=== PATIENT | male | born 1940 | race Caucasian/White ===

== ENCOUNTER 2017-10-09 15:44 | Outpatient (CLI) | payer OTHER | END 2017-10-09 17:00 | disposition home or self-care (01) | LOC: HPC 15:44 | DX: C22.0 Liver cell carcinoma (principal) | CPT/HCPCS: Z7500 ==

== ENCOUNTER → 2017-10-11 | Outpatient (CLI) | payer OTHER ==
[2017-10-11] MEDS: SOD CHLORIDE 0.9% 100 ML (12:15)
[2017-10-11] MEDS: IODIXANOL LOCM 100 ML BTL (12:16)
== END | disposition home or self-care (01) ==
LOC: C/S 10:46
DX: C22.0 Liver cell carcinoma (principal)
CPT/HCPCS: 74178

== ENCOUNTER 2017-10-21 11:00 | Outpatient (CLI) | payer OTHER | END 2017-10-21 16:43 | disposition home or self-care (01) | LOC: HPC 11:00 | DX: C22.0 Liver cell carcinoma (principal) | CPT/HCPCS: Z7500 ==

== ENCOUNTER 2017-11-27 09:52 | Outpatient (CLI) | payer OTHER | END 2017-11-27 15:42 | disposition home or self-care (01) | LOC: HPC 09:52 | DX: C22.0 Liver cell carcinoma (principal) | CPT/HCPCS: Z7500 ==

== ENCOUNTER 2018-01-31 18:28 | Observation (INO) | payer OTHER ==
[2018-01-31] MEDS: DEXTROSE 5%-0.45% NACL 1,000 ML IV (00:25)
[2018-01-31] MEDS ORDERED: morphine 4 MG/ML VIAL IV (19:24)
[2018-01-31] MEDS ORDERED: ONDANSETRON 4 MG INJ IV ×3 (19:24→23:30)
[2018-01-31 20:15] LABS: ADD MAN DIFF? NO
[2018-01-31 20:16] LABS: BASOPHILS % 0.5 % (0.0-2.0); EOSINOPHILS # 0.2 10^3/ul (0.0-0.5); EOSINOPHILS % 2.3 % (0.0-7.0); HEMATOCRIT 35.2 % (42.0-52.0); HEMOGLOBIN 12.6 g/dl (14.0-18.0); LYMPHOCYTES # 1.3 10^3/ul (0.8-2.9); LYMPHOCYTES % 17.6 % (15.0-51.0); MEAN CORPUSCULAR HEMOGLOBIN 26.1 pg (29.0-33.0); MEAN CORPUSCULAR HGB CONC 35.8 g/dl (32.0-37.0); MEAN CORPUSCULAR VOLUME 72.9 fl (82.0-101.0); MEAN PLATELET VOLUME 10.2 fl (7.4-10.4); MONOCYTE # 0.8 10^3/ul (0.3-0.9); MONOCYTES % 10.3 % (0.0-11.0); NEUTROPHIL # 5.1 10^3/ul (1.6-7.5); NEUTROPHILS % 68.6 % (39.0-77.0); PLATELET COUNT 317 10^3/UL (140-415); RED BLOOD COUNT 4.83 10^6/ul (4.70-6.10); RED CELL DISTRIBUTION WIDTH 14.7 % (11.5-14.5)
[2018-01-31 20:16] LABS: WHITE BLOOD COUNT 7.5 10^3/ul (4.8-10.8)
[2018-01-31 20:31] LABS: INR 0.96; PROTIME 12.9 Sec (11.9-14.9)
[2018-01-31 20:32] LABS: PARTIAL THROMBOPLASTIN TIME 34.8 Sec (25.0-35.0)
[2018-01-31 20:49] LABS: ALANINE AMINOTRANSFERASE 85 IU/L (13-69); ALBUMIN 3.3 g/dl (3.3-4.9); ALBUMIN/GLOBULIN RATIO 0.68; ALKALINE PHOSPHATASE 439 IU/L (42-121); ANION GAP 15 (8-16); ASPARTATE AMINO TRANSFERASE 98 IU/L (15-46); BILIRUBIN,INDIRECT 0.6 mg/dl (0-1.1); BILIRUBIN,TOTAL 0.6 mg/dl (0.2-1.3); BLOOD UREA NITROGEN 12 mg/dl (7-20); CALCIUM 9.8 mg/dl (8.4-10.2); CARBON DIOXIDE 27 mmol/L (21-31); CHLORIDE 98 mmol/L (97-110); CREATININE 0.93 mg/dl (0.61-1.24); GLUCOSE 176 mg/dl (70-220); LIPASE 124 U/L (23-300); POTASSIUM 3.9 mmol/L (3.5-5.1); SODIUM 136 mmol/L (135-144); TOTAL PROTEIN 8.1 g/dl (6.1-8.1)
[2018-01-31 21:07] LABS: TROPONIN-I < 0.012 ng/ml (0.00-0.12)
[2018-01-31] MEDS ORDERED: ACETAMINOPHEN 325 MG TAB PO (22:00)
[2018-01-31] MEDS ORDERED: NACL 0.9% 3 ML SYG IV (23:30)
[2018-01-31] MEDS ORDERED: ALBUTEROL/IPRATROPIUM (NEB) 3 ML AMP HHN (23:30)
[2018-01-31] MEDS ORDERED: morphine 2 MG INJ IV (23:30)
[2018-02-01 05:50] LABS: ADD MAN DIFF? NO
[2018-02-01 05:55] LABS: BASOPHILS % 0.4 % (0.0-2.0); EOSINOPHILS # 0.2 10^3/ul (0.0-0.5); EOSINOPHILS % 2.4 % (0.0-7.0); HEMATOCRIT 31.7 % (42.0-52.0); HEMOGLOBIN 11.2 g/dl (14.0-18.0); LYMPHOCYTES # 1.4 10^3/ul (0.8-2.9); LYMPHOCYTES % 18.9 % (15.0-51.0); MEAN CORPUSCULAR HEMOGLOBIN 25.7 pg (29.0-33.0); MEAN CORPUSCULAR HGB CONC 35.3 g/dl (32.0-37.0); MEAN CORPUSCULAR VOLUME 72.9 fl (82.0-101.0); MONOCYTE # 0.9 10^3/ul (0.3-0.9); MONOCYTES % 11.7 % (0.0-11.0); NEUTROPHILS % 66.2 % (39.0-77.0); PLATELET COUNT 296 10^3/UL (140-415); RED BLOOD COUNT 4.35 10^6/ul (4.70-6.10); RED CELL DISTRIBUTION WIDTH 14.6 % (11.5-14.5)
[2018-02-01 05:55] LABS: WHITE BLOOD COUNT 7.5 10^3/ul (4.8-10.8)
[2018-02-01 06:25] LABS: ALANINE AMINOTRANSFERASE 80 IU/L (13-69); ALBUMIN 2.7 g/dl (3.3-4.9); ALBUMIN/GLOBULIN RATIO 0.64; ALKALINE PHOSPHATASE 382 IU/L (42-121); ANION GAP 11 (8-16); ASPARTATE AMINO TRANSFERASE 85 IU/L (15-46); BILIRUBIN,INDIRECT 0.4 mg/dl (0-1.1); BILIRUBIN,TOTAL 0.4 mg/dl (0.2-1.3); BLOOD UREA NITROGEN 11 mg/dl (7-20); CALCIUM 9.6 mg/dl (8.4-10.2); CARBON DIOXIDE 30 mmol/L (21-31); CHLORIDE 103 mmol/L (97-110); CREATININE 0.81 mg/dl (0.61-1.24); GLUCOSE 101 mg/dl (70-220); MAGNESIUM 2.1 mg/dl (1.7-2.5); POTASSIUM 3.7 mmol/L (3.5-5.1); SODIUM 140 mmol/L (135-144); TOTAL PROTEIN 6.9 g/dl (6.1-8.1)
[2018-02-01] MEDS: LIDOCAINE 1% (MDV) 10 ML INJ (15:28)
[2018-02-01 16:00] LABS: FLD MN% 72.8 %; FLD PMN% 27.2 %; FLD RBC 0 /uL; FLD WBC 357 /cmm
[2018-02-01 16:18] LABS: FLD CLARITY CLEAR; FLD COLOR YELLOW
[2018-02-01 16:18] LABS: FLD TYPE PARACENTHESIS
[2018-02-01 16:24] LABS: FLUID AMYLASE < 30 U/L; FLUID GLUCOSE 93 mg/dl
[2018-02-01 16:25] LABS: FLUID LD 153 U/L; FLUID TOTAL PROTEIN < 2.0 g/dl
[2018-02-01] MEDS: LATANOPROST 0.005% 2.5 ML OPH BOTH EYES (21:12)
[2018-02-01] MEDS: DEXTROSE 5%-0.45% NACL 1,000 ML IV (23:15)
[2018-02-02] MEDS: DEXTROSE 5%-0.45% NACL 1,000 ML IV (04:30)
[2018-02-02] MEDS: DOCUSATE SODIUM 100 MG CAP PO (11:56)
== END 2018-02-02 12:30 | disposition home or self-care (01) ==
LOC: MS1 02-01 21:25 → E/R 18:28 → MS1 21:57
DX: R18.8 Other ascites (principal); C22.0 Liver cell carcinoma; I10 Essential (primary) hypertension; J44.9 Chronic obstructive pulmonary disease, unspecified; J45.909 Unspecified asthma, uncomplicated; N40.0 Benign prostatic hyperplasia without lower urinary tract symptoms; Z88.8 Allergy status to other drugs, medicaments and biological substances; Z87.891 Personal history of nicotine dependence; Z83.3 Family history of diabetes mellitus
CPT/HCPCS: 36415; 74176; 80053; 82150; 82945; 83615; 83690; 83735; 84100; 84157; 84484; 85025; 85610; 85730; 87070; 87102; 87116; 88104; 88305; 89051; 99285-25

== ENCOUNTER 2018-02-28 18:34 | Inpatient (IN) | payer OTHER ==
[2018-02-28 19:36] LABS: ADD MAN DIFF? NO
[2018-02-28 19:43] LABS: ABNORMAL IP MESSAGE 1; BASOPHIL # 0.1 10^3/ul (0.0-0.1); BASOPHILS % 0.4 % (0.0-2.0); EOSINOPHILS % 0.1 % (0.0-7.0); HEMOGLOBIN 15.4 g/dl (14.0-18.0); LYMPHOCYTES # 1.9 10^3/ul (0.8-2.9); LYMPHOCYTES % 14.1 % (15.0-51.0); MEAN CORPUSCULAR HEMOGLOBIN 24.9 pg (29.0-33.0); MEAN CORPUSCULAR HGB CONC 36.7 g/dl (32.0-37.0); MEAN CORPUSCULAR VOLUME 67.9 fl (82.0-101.0); MONOCYTE # 1.5 10^3/ul (0.3-0.9); MONOCYTES % 11.2 % (0.0-11.0); NEUTROPHIL # 9.8 10^3/ul (1.6-7.5); NEUTROPHILS % 71.7 % (39.0-77.0); PLATELET COUNT 352 10^3/UL (140-415); POSITIVE DIFF @See below; RED BLOOD COUNT 6.19 10^6/ul (4.70-6.10); RED CELL DISTRIBUTION WIDTH 19.2 % (11.5-14.5)
[2018-02-28 19:43] LABS: WHITE BLOOD COUNT 13.7 10^3/ul (4.8-10.8)
[2018-02-28] MEDS: SOD CHLORIDE 0.9% 1,000 ML IV (19:48)
[2018-02-28 20:01] LABS: ADD UMIC YES; UR ASCORBIC ACID NEGATIVE (NEGATIVE); UR BILIRUBIN (Dip) NEGATIVE (NEGATIVE); UR BLOOD (Dip) 1+ mg/dL (NEGATIVE); UR CLARITY CLEAR (CLEAR); UR COLOR AMBER (YELLOW); UR GLUCOSE (Dip) NEGATIVE (NEGATIVE); UR KETONES (Dip) NEGATIVE (NEGATIVE); UR LEUKOCYTE ESTERASE (Dip) NEGATIVE Leu/ul (NEGATIVE); UR NITRITE (Dip) NEGATIVE (NEGATIVE); UR RBC 4 /HPF (0-5); UR SPECIFIC GRAVITY (Dip) 1.012 (1.003-1.030); UR TOTAL PROTEIN (Dip) NEGATIVE (NEGATIVE); UR UROBILINOGEN (Dip) 2+ mg/dL (NEGATIVE); UR WBC 7 /HPF (0-5)
[2018-02-28 20:02] LABS: INR 1.14; PROTIME 14.8 Sec (11.9-14.9); PT RATIO 1.2
[2018-02-28 20:03] LABS: PARTIAL THROMBOPLASTIN TIME 37.4 Sec (25.0-35.0)
[2018-02-28 20:05] LABS: ACETAMINOPHEN < 10.0 ug/ml (10.0-30.0); ALANINE AMINOTRANSFERASE 220 IU/L (13-69); ALBUMIN 3.2 g/dl (3.3-4.9); ALBUMIN/GLOBULIN RATIO 0.58; ALKALINE PHOSPHATASE 489 IU/L (42-121); ANION GAP 14 (8-16); ASPARTATE AMINO TRANSFERASE 204 IU/L (15-46); BILIRUBIN,INDIRECT 1.3 mg/dl (0-1.1); BILIRUBIN,TOTAL 3.5 mg/dl (0.2-1.3); BLOOD UREA NITROGEN 19 mg/dl (7-20); CALCIUM 9.1 mg/dl (8.4-10.2); CARBON DIOXIDE 28 mmol/L (21-31); CHLORIDE 99 mmol/L (97-110); CREATINE KINASE 44 IU/L (23-200); CREATININE 0.96 mg/dl (0.61-1.24); GLUCOSE 107 mg/dl (70-220); POTASSIUM 4.1 mmol/L (3.5-5.1); SALICYLATE < 1.0 mg/dl (5.0-30.0); SODIUM 137 mmol/L (135-144); TOTAL PROTEIN 8.7 g/dl (6.1-8.1)
[2018-02-28 20:05] LABS: AMMONIA 59 umol/l (9-30)
[2018-02-28 20:13] LABS: CK INDEX 0.8; CK-MB 0.37 ng/ml (0.0-2.4)
[2018-02-28 20:18] LABS: TROPONIN-I < 0.012 ng/ml (0.000-0.120)
[2018-02-28] MEDS: CEFTRIAXONE 1 GM/50 ML (PMX) 50 ML IVPB (21:25)
[2018-02-28] MEDS: LACTULOSE 30ML CUP PO (21:25)
[2018-02-28] MEDS ORDERED: ACETAMINOPHEN 325 MG TAB PO (23:00)
[2018-02-28] MEDS ORDERED: ONDANSETRON 4 MG INJ IV (23:00)
[2018-03-01] MEDS ORDERED: morphine 2 MG INJ IV (04:30)
[2018-03-01] MEDS ORDERED: ONDANSETRON 4 MG INJ IV (04:30)
[2018-03-01] MEDS ORDERED: LACTULOSE 30ML CUP PO (06:00)
[2018-03-01] MEDS: LACTULOSE 30ML CUP PO ×3 (06:15→18:01)
[2018-03-01 06:54] LABS: ADD MAN DIFF? NO
[2018-03-01 07:03] LABS: WHITE BLOOD COUNT 11.5 10^3/ul (4.8-10.8)
[2018-03-01 07:03] LABS: BASOPHIL # 0.1 10^3/ul (0.0-0.1); BASOPHILS % 0.5 % (0.0-2.0); EOSINOPHILS # 0.1 10^3/ul (0.0-0.5); EOSINOPHILS % 0.4 % (0.0-7.0); HEMATOCRIT 37.9 % (42.0-52.0); HEMOGLOBIN 14.1 g/dl (14.0-18.0); LYMPHOCYTES # 1.7 10^3/ul (0.8-2.9); LYMPHOCYTES % 15.1 % (15.0-51.0); MEAN CORPUSCULAR HEMOGLOBIN 25.4 pg (29.0-33.0); MEAN CORPUSCULAR HGB CONC 37.2 g/dl (32.0-37.0); MEAN CORPUSCULAR VOLUME 68.2 fl (82.0-101.0); MEAN PLATELET VOLUME 10.2 fl (7.4-10.4); MONOCYTE # 1.2 10^3/ul (0.3-0.9); MONOCYTES % 10.7 % (0.0-11.0); NEUTROPHIL # 8.1 10^3/ul (1.6-7.5); NUCLEATED RED BLOOD CELLS% 0.2 /100WBC (0.0-0.0); PLATELET COUNT 332 10^3/UL (140-415); RED BLOOD COUNT 5.56 10^6/ul (4.70-6.10); RED CELL DISTRIBUTION WIDTH 18.9 % (11.5-14.5)
[2018-03-01 07:40] LABS: ALANINE AMINOTRANSFERASE 175 IU/L (13-69); ALBUMIN 2.4 g/dl (3.3-4.9); ALBUMIN/GLOBULIN RATIO 0.51; ALKALINE PHOSPHATASE 367 IU/L (42-121); ANION GAP 14 (8-16); ASPARTATE AMINO TRANSFERASE 174 IU/L (15-46); BILIRUBIN,INDIRECT 1.2 mg/dl (0-1.1); BILIRUBIN,TOTAL 3.3 mg/dl (0.2-1.3); BLOOD UREA NITROGEN 18 mg/dl (7-20); CALCIUM 8.5 mg/dl (8.4-10.2); CARBON DIOXIDE 27 mmol/L (21-31); CHLORIDE 104 mmol/L (97-110); CREATININE 0.71 mg/dl (0.61-1.24); GLUCOSE 79 mg/dl (70-220); MAGNESIUM 2.2 mg/dl (1.7-2.5); PHOSPHORUS 3.3 mg/dl (2.5-4.9); POTASSIUM 4.2 mmol/L (3.5-5.1); SODIUM 141 mmol/L (135-144); TOTAL PROTEIN 7.1 g/dl (6.1-8.1)
[2018-03-01 08:32] LABS: AMMONIA 60 umol/l (9-30)
[2018-03-01] MEDS: CEFTRIAXONE 1 GM/50 ML (PMX) 50 ML IVPB ×2 (08:38→20:47)
[2018-03-01] MEDS ORDERED: FUROSEMIDE 20 MG TAB PO (11:00)
[2018-03-01] MEDS: SPIRONOLACTONE 25 MG TAB PO (14:07)
[2018-03-01] MEDS: SALMETEROL/FLUTICASONE 250/50 INHA INH ×2 (14:07→20:46)
[2018-03-01] MEDS: GABAPENTIN 300 MG CAP PO (14:07)
[2018-03-01] MEDS: HYDROCHLOROTHIAZIDE 12.5 MG CAP PO (14:08)
[2018-03-01] MEDS: LOSARTAN 25 MG TAB PO (14:09)
[2018-03-01] MEDS: RIFAXIMIN 550 MG TAB PO ×2 (14:09→20:47)
[2018-03-01] MEDS: TAMSULOSIN (SR) 0.4 MG CAP PO (20:47)
[2018-03-02] MEDS: LACTULOSE 30ML CUP PO ×5 (00:11→23:07)
[2018-03-02] MEDS: HYDROCHLOROTHIAZIDE 12.5 MG CAP PO (06:10)
[2018-03-02] MEDS: FUROSEMIDE 20 MG TAB PO (06:11)
[2018-03-02 07:33] LABS: AMMONIA 32 umol/l (9-30)
[2018-03-02] MEDS: RIFAXIMIN 550 MG TAB PO ×2 (09:16→20:49)
[2018-03-02] MEDS: SALMETEROL/FLUTICASONE 250/50 INHA INH ×2 (09:16→20:57)
[2018-03-02] MEDS: CEFTRIAXONE 1 GM/50 ML (PMX) 50 ML IVPB ×2 (09:16→20:49)
[2018-03-02] MEDS: GABAPENTIN 300 MG CAP PO (09:16)
[2018-03-02] MEDS: SPIRONOLACTONE 25 MG TAB PO (09:16)
[2018-03-02] MEDS: LOSARTAN 25 MG TAB PO (09:17)
[2018-03-02 12:18] LABS: ALANINE AMINOTRANSFERASE 179 IU/L (13-69); ALBUMIN 2.9 g/dl (3.3-4.9); ALBUMIN/GLOBULIN RATIO 0.55; ALKALINE PHOSPHATASE 403 IU/L (42-121); ANION GAP 16 (8-16); ASPARTATE AMINO TRANSFERASE 179 IU/L (15-46); BILIRUBIN,INDIRECT 1.3 mg/dl (0-1.1); BILIRUBIN,TOTAL 3.1 mg/dl (0.2-1.3); BLOOD UREA NITROGEN 18 mg/dl (7-20); CALCIUM 9.4 mg/dl (8.4-10.2); CARBON DIOXIDE 27 mmol/L (21-31); CHLORIDE 105 mmol/L (97-110); CREATININE 0.75 mg/dl (0.61-1.24); GLUCOSE 102 mg/dl (70-220); POTASSIUM 3.9 mmol/L (3.5-5.1); SODIUM 144 mmol/L (135-144); TOTAL PROTEIN 8.1 g/dl (6.1-8.1)
[2018-03-02 13:15] LABS: HEPATITIS B SURFACE ANTIGEN NEGATIVE (NEGATIVE)
[2018-03-02 13:32] LABS: HEPATITIS B CORE ANTIBODY REACTIVE (NEGATIVE)
[2018-03-02 13:33] LABS: HEPATITIS B SURFACE ANTIBODY POSITIVE (NEGATIVE)
[2018-03-02 13:34] LABS: HEPATITIS C VIRAL ANTIBODY REACTIVE (NEGATIVE)
[2018-03-02] MEDS: TAMSULOSIN (SR) 0.4 MG CAP PO (20:48)
[2018-03-03] MEDS: LACTULOSE 30ML CUP PO ×2 (05:32→20:20)
[2018-03-03] MEDS: FUROSEMIDE 20 MG TAB PO (05:33)
[2018-03-03] MEDS: HYDROCHLOROTHIAZIDE 12.5 MG CAP PO (05:34)
[2018-03-03 07:44] LABS: ADD MAN DIFF? NO
[2018-03-03 07:55] LABS: BASOPHIL # 0.1 10^3/ul (0.0-0.1); BASOPHILS % 0.6 % (0.0-2.0); EOSINOPHILS # 0.1 10^3/ul (0.0-0.5); HEMATOCRIT 38.1 % (42.0-52.0); HEMOGLOBIN 13.9 g/dl (14.0-18.0); LYMPHOCYTES # 1.7 10^3/ul (0.8-2.9); LYMPHOCYTES % 15.6 % (15.0-51.0); MEAN CORPUSCULAR HGB CONC 36.5 g/dl (32.0-37.0); MEAN CORPUSCULAR VOLUME 68.5 fl (82.0-101.0); MEAN PLATELET VOLUME 10.2 fl (7.4-10.4); MONOCYTES % 9.6 % (0.0-11.0); NEUTROPHIL # 7.4 10^3/ul (1.6-7.5); NEUTROPHILS % 68.6 % (39.0-77.0); NUCLEATED RED BLOOD CELLS% 0.2 /100WBC (0.0-0.0); PLATELET COUNT 342 10^3/UL (140-415); RED BLOOD COUNT 5.56 10^6/ul (4.70-6.10); RED CELL DISTRIBUTION WIDTH 20.6 % (11.5-14.5)
[2018-03-03 07:55] LABS: WHITE BLOOD COUNT 10.8 10^3/ul (4.8-10.8)
[2018-03-03 08:12] LABS: AMMONIA 46 umol/l (9-30)
[2018-03-03 08:38] LABS: ANION GAP 11 (8-16); BLOOD UREA NITROGEN 16 mg/dl (7-20); CALCIUM 9.2 mg/dl (8.4-10.2); CARBON DIOXIDE 33 mmol/L (21-31); CHLORIDE 105 mmol/L (97-110); CREATININE 0.74 mg/dl (0.61-1.24); GLUCOSE 133 mg/dl (70-220); MAGNESIUM 2.4 mg/dl (1.7-2.5); PHOSPHORUS 2.8 mg/dl (2.5-4.9); POTASSIUM 3.2 mmol/L (3.5-5.1); SODIUM 146 mmol/L (135-144)
[2018-03-03] MEDS: SPIRONOLACTONE 25 MG TAB PO (09:14)
[2018-03-03] MEDS: RIFAXIMIN 550 MG TAB PO ×2 (09:14→20:20)
[2018-03-03] MEDS: LOSARTAN 25 MG TAB PO (09:14)
[2018-03-03] MEDS: GABAPENTIN 300 MG CAP PO (09:14)
[2018-03-03] MEDS: CEFTRIAXONE 1 GM/50 ML (PMX) 50 ML IVPB ×2 (09:15→21:00)
[2018-03-03] MEDS: SALMETEROL/FLUTICASONE 250/50 INHA INH ×2 (09:15→20:20)
[2018-03-03] MEDS: POTASSIUM CHLORIDE (SR) 20 MEQ TAB PO ×2 (10:19→14:24)
[2018-03-03 10:29] LABS: ALANINE AMINOTRANSFERASE 163 IU/L (13-69); ALBUMIN 2.6 g/dl (3.3-4.9); ALKALINE PHOSPHATASE 393 IU/L (42-121); ASPARTATE AMINO TRANSFERASE 176 IU/L (15-46); BILIRUBIN,INDIRECT 0.9 mg/dl (0-1.1); BILIRUBIN,TOTAL 1.3 mg/dl (0.2-1.3); TOTAL PROTEIN 7.4 g/dl (6.1-8.1)
[2018-03-03] MEDS ORDERED: KETOROLAC 15 MG INJ IV (11:00)
[2018-03-03] MEDS ORDERED: morphine LIQ (10 MG/5 ML) CUP PO (15:00)
[2018-03-03] MEDS: ALBUTEROL 0.083% (NEB) 2.5 MG/3 ML AMP HHN (16:19)
[2018-03-03] MEDS: TAMSULOSIN (SR) 0.4 MG CAP PO (20:20)
[2018-03-04] MEDS: HYDROCHLOROTHIAZIDE 12.5 MG CAP PO (05:13)
[2018-03-04] MEDS: FUROSEMIDE 20 MG TAB PO (05:18)
[2018-03-04 08:01] LABS: ADD MAN DIFF? NO
[2018-03-04 08:29] LABS: AMMONIA 36 umol/l (9-30)
[2018-03-04 08:32] LABS: ALANINE AMINOTRANSFERASE 168 IU/L (13-69); ALBUMIN 2.6 g/dl (3.3-4.9); ALBUMIN/GLOBULIN RATIO 0.53; ALKALINE PHOSPHATASE 461 IU/L (42-121); ANION GAP 11 (8-16); ASPARTATE AMINO TRANSFERASE 169 IU/L (15-46); BILIRUBIN,INDIRECT 1.1 mg/dl (0-1.1); BILIRUBIN,TOTAL 1.6 mg/dl (0.2-1.3); BLOOD UREA NITROGEN 13 mg/dl (7-20); CALCIUM 9.6 mg/dl (8.4-10.2); CARBON DIOXIDE 33 mmol/L (21-31); CHLORIDE 103 mmol/L (97-110); CREATININE 0.71 mg/dl (0.61-1.24); GLUCOSE 111 mg/dl (70-220); MAGNESIUM 2.1 mg/dl (1.7-2.5); POTASSIUM 3.7 mmol/L (3.5-5.1); SODIUM 143 mmol/L (135-144); TOTAL PROTEIN 7.5 g/dl (6.1-8.1)
[2018-03-04] MEDS: LACTULOSE 30ML CUP PO ×2 (09:08→20:25)
[2018-03-04] MEDS: CEFTRIAXONE 1 GM/50 ML (PMX) 50 ML IVPB ×2 (09:08→20:25)
[2018-03-04] MEDS: SPIRONOLACTONE 25 MG TAB PO (09:09)
[2018-03-04] MEDS: GABAPENTIN 300 MG CAP PO (09:09)
[2018-03-04] MEDS: RIFAXIMIN 550 MG TAB PO ×2 (09:09→20:26)
[2018-03-04] MEDS: LOSARTAN 25 MG TAB PO (09:10)
[2018-03-04] MEDS: SALMETEROL/FLUTICASONE 250/50 INHA INH ×2 (09:11→20:32)
[2018-03-04 09:44] LABS: BASOPHIL # 0.1 10^3/ul (0.0-0.1); BASOPHILS % 0.4 % (0.0-2.0); EOSINOPHILS # 0.1 10^3/ul (0.0-0.5); EOSINOPHILS % 0.9 % (0.0-7.0); HEMATOCRIT 40.7 % (42.0-52.0); LYMPHOCYTES # 1.8 10^3/ul (0.8-2.9); LYMPHOCYTES % 14.8 % (15.0-51.0); MEAN CORPUSCULAR HEMOGLOBIN 25.3 pg (29.0-33.0); MEAN CORPUSCULAR HGB CONC 36.9 g/dl (32.0-37.0); MEAN CORPUSCULAR VOLUME 68.6 fl (82.0-101.0); MEAN PLATELET VOLUME 10.3 fl (7.4-10.4); MONOCYTE # 1.1 10^3/ul (0.3-0.9); MONOCYTES % 8.5 % (0.0-11.0); NEUTROPHIL # 8.8 10^3/ul (1.6-7.5); NEUTROPHILS % 71.5 % (39.0-77.0); NUCLEATED RED BLOOD CELLS% 0.2 /100WBC (0.0-0.0); PLATELET COUNT 360 10^3/UL (140-415); RED BLOOD COUNT 5.93 10^6/ul (4.70-6.10)
[2018-03-04 09:44] LABS: WHITE BLOOD COUNT 12.3 10^3/ul (4.8-10.8)
[2018-03-04] MEDS: TAMSULOSIN (SR) 0.4 MG CAP PO (20:26)
[2018-03-05] MEDS: HYDROCHLOROTHIAZIDE 12.5 MG CAP PO (05:19)
[2018-03-05] MEDS: FUROSEMIDE 20 MG TAB PO (05:24)
[2018-03-05 07:40] LABS: ADD MAN DIFF? NO
[2018-03-05 07:46] LABS: BASOPHIL # 0.1 10^3/ul (0.0-0.1); BASOPHILS % 0.4 % (0.0-2.0); EOSINOPHILS # 0.1 10^3/ul (0.0-0.5); EOSINOPHILS % 0.9 % (0.0-7.0); HEMATOCRIT 39.1 % (42.0-52.0); HEMOGLOBIN 14.2 g/dl (14.0-18.0); LYMPHOCYTES # 1.9 10^3/ul (0.8-2.9); LYMPHOCYTES % 16.9 % (15.0-51.0); MEAN CORPUSCULAR HEMOGLOBIN 24.9 pg (29.0-33.0); MEAN CORPUSCULAR HGB CONC 36.3 g/dl (32.0-37.0); MEAN CORPUSCULAR VOLUME 68.6 fl (82.0-101.0); MEAN PLATELET VOLUME 9.8 fl (7.4-10.4); MONOCYTES % 8.9 % (0.0-11.0); NEUTROPHIL # 8.1 10^3/ul (1.6-7.5); NEUTROPHILS % 70.7 % (39.0-77.0); PLATELET COUNT 347 10^3/UL (140-415); RED CELL DISTRIBUTION WIDTH 21.2 % (11.5-14.5)
[2018-03-05 07:46] LABS: WHITE BLOOD COUNT 11.5 10^3/ul (4.8-10.8)
[2018-03-05 08:11] LABS: ALANINE AMINOTRANSFERASE 157 IU/L (13-69); ALBUMIN 2.6 g/dl (3.3-4.9); ALBUMIN/GLOBULIN RATIO 0.54; ALKALINE PHOSPHATASE 463 IU/L (42-121); ANION GAP 11 (8-16); ASPARTATE AMINO TRANSFERASE 172 IU/L (15-46); BILIRUBIN,TOTAL 1.5 mg/dl (0.2-1.3); BLOOD UREA NITROGEN 15 mg/dl (7-20); CALCIUM 9.3 mg/dl (8.4-10.2); CARBON DIOXIDE 31 mmol/L (21-31); CHLORIDE 101 mmol/L (97-110); CREATININE 0.79 mg/dl (0.61-1.24); GLUCOSE 104 mg/dl (70-220); MAGNESIUM 2.2 mg/dl (1.7-2.5); POTASSIUM 3.7 mmol/L (3.5-5.1); SODIUM 139 mmol/L (135-144); TOTAL PROTEIN 7.4 g/dl (6.1-8.1)
[2018-03-05] MEDS: CEFTRIAXONE 1 GM/50 ML (PMX) 50 ML IVPB ×2 (08:11→20:30)
[2018-03-05] MEDS: LACTULOSE 30ML CUP PO ×2 (08:11→20:29)
[2018-03-05] MEDS: SALMETEROL/FLUTICASONE 250/50 INHA INH ×2 (08:11→20:29)
[2018-03-05] MEDS: LOSARTAN 25 MG TAB PO (08:12)
[2018-03-05] MEDS: GABAPENTIN 300 MG CAP PO (08:12)
[2018-03-05] MEDS: SPIRONOLACTONE 25 MG TAB PO (08:12)
[2018-03-05] MEDS: RIFAXIMIN 550 MG TAB PO ×2 (08:12→20:29)
[2018-03-05 12:59] LABS: AMMONIA 43 umol/l (9-30)
[2018-03-05] MEDS: TAMSULOSIN (SR) 0.4 MG CAP PO (20:29)
[2018-03-06] MEDS: FUROSEMIDE 20 MG TAB PO (06:16)
[2018-03-06] MEDS: HYDROCHLOROTHIAZIDE 12.5 MG CAP PO (06:16)
[2018-03-06 06:52] LABS: ADD MAN DIFF? NO
[2018-03-06 06:55] LABS: BASOPHIL # 0.1 10^3/ul (0.0-0.1); BASOPHILS % 0.5 % (0.0-2.0); EOSINOPHILS # 0.1 10^3/ul (0.0-0.5); HEMATOCRIT 38.2 % (42.0-52.0); HEMOGLOBIN 13.9 g/dl (14.0-18.0); LYMPHOCYTES # 1.9 10^3/ul (0.8-2.9); LYMPHOCYTES % 16.7 % (15.0-51.0); MEAN CORPUSCULAR HEMOGLOBIN 24.6 pg (29.0-33.0); MEAN CORPUSCULAR HGB CONC 36.4 g/dl (32.0-37.0); MEAN CORPUSCULAR VOLUME 67.5 fl (82.0-101.0); MEAN PLATELET VOLUME 9.6 fl (7.4-10.4); MONOCYTE # 1.1 10^3/ul (0.3-0.9); MONOCYTES % 9.3 % (0.0-11.0); NEUTROPHILS % 70.7 % (39.0-77.0); PLATELET COUNT 341 10^3/UL (140-415); RED BLOOD COUNT 5.66 10^6/ul (4.70-6.10); RED CELL DISTRIBUTION WIDTH 21.2 % (11.5-14.5)
[2018-03-06 06:55] LABS: WHITE BLOOD COUNT 11.3 10^3/ul (4.8-10.8)
[2018-03-06 07:12] LABS: AMMONIA 32 umol/l (9-30)
[2018-03-06 07:23] LABS: ALANINE AMINOTRANSFERASE 243 IU/L (13-69); ALBUMIN 2.4 g/dl (3.3-4.9); ALBUMIN/GLOBULIN RATIO 0.51; ALKALINE PHOSPHATASE 458 IU/L (42-121); ANION GAP 12 (8-16); ASPARTATE AMINO TRANSFERASE 229 IU/L (15-46); BILIRUBIN,INDIRECT 0.9 mg/dl (0-1.1); BILIRUBIN,TOTAL 1.5 mg/dl (0.2-1.3); BLOOD UREA NITROGEN 18 mg/dl (7-20); CALCIUM 9.1 mg/dl (8.4-10.2); CARBON DIOXIDE 31 mmol/L (21-31); CHLORIDE 100 mmol/L (97-110); GLUCOSE 101 mg/dl (70-220); MAGNESIUM 2.2 mg/dl (1.7-2.5); POTASSIUM 3.9 mmol/L (3.5-5.1); SODIUM 139 mmol/L (135-144); TOTAL PROTEIN 7.1 g/dl (6.1-8.1)
[2018-03-06] MEDS: RIFAXIMIN 550 MG TAB PO (08:23)
[2018-03-06] MEDS: GABAPENTIN 300 MG CAP PO (08:23)
[2018-03-06] MEDS: LOSARTAN 25 MG TAB PO (08:23)
[2018-03-06] MEDS: SPIRONOLACTONE 25 MG TAB PO (08:23)
[2018-03-06] MEDS: LACTULOSE 30ML CUP PO ×2 (08:23→12:29)
[2018-03-06] MEDS: CEFTRIAXONE 1 GM/50 ML (PMX) 50 ML IVPB (08:23)
[2018-03-06] MEDS: SALMETEROL/FLUTICASONE 250/50 INHA INH (09:23)
== END 2018-03-06 17:06 | disposition home health service (06) | DRG 435 ==
LOC: TEL 22:33 → E/R 18:34
DX: C22.0 Liver cell carcinoma (principal); K72.00 Acute and subacute hepatic failure without coma; N39.0 Urinary tract infection, site not specified; E72.20 Disorder of urea cycle metabolism, unspecified; K74.60 Unspecified cirrhosis of liver; R14.0 Abdominal distension (gaseous); Z86.19 Personal history of other infectious and parasitic diseases; Z87.891 Personal history of nicotine dependence
CPT/HCPCS: 36415; 70450; 71045; 74181; 76705; 80048; 80053; 80076; 80307; 81001; 82140; 82550; 82553; 83735; 84100; 84484; 85025; 85610; 85730; 86704; 86706; 86708; 86709; 86803; 87040; 87086; 87340; 87522; 93005; 94640; 96361; 96365; 97116; 97162; 97530; 99285-25

== ENCOUNTER 2018-03-11 14:14 | Outpatient (CLI) | payer OTHER | END 2018-03-11 16:32 | disposition home or self-care (01) | LOC: DCC 14:14 | DX: K72.90 Hepatic failure, unspecified without coma (principal); C22.0 Liver cell carcinoma; B19.20 Unspecified viral hepatitis C without hepatic coma; F41.9 Anxiety disorder, unspecified; K74.60 Unspecified cirrhosis of liver; R53.83 Other fatigue | CPT/HCPCS: G0463 ==

== ENCOUNTER 2018-03-14 13:58 | Outpatient (CLI) | payer OTHER | END 2018-03-14 16:05 | disposition home or self-care (01) | LOC: DCC 13:58 | DX: K72.90 Hepatic failure, unspecified without coma (principal); B19.20 Unspecified viral hepatitis C without hepatic coma; C22.0 Liver cell carcinoma; F41.9 Anxiety disorder, unspecified; D72.829 Elevated white blood cell count, unspecified; R18.8 Other ascites | CPT/HCPCS: G0463 ==

== ENCOUNTER 2018-03-14 15:15 | Inpatient (IN) | payer OTHER ==
[2018-03-14 16:07] LABS: ADD MAN DIFF? NO
[2018-03-14 16:10] LABS: WHITE BLOOD COUNT 14.8 10^3/ul (4.8-10.8)
[2018-03-14 16:10] LABS: ABNORMAL IP MESSAGE 1; BASOPHIL # 0.1 10^3/ul (0.0-0.1); BASOPHILS % 0.7 % (0.0-2.0); EOSINOPHILS # 0.1 10^3/ul (0.0-0.5); EOSINOPHILS % 0.5 % (0.0-7.0); HEMATOCRIT 39.4 % (42.0-52.0); HEMOGLOBIN 14.3 g/dl (14.0-18.0); LYMPHOCYTES # 1.9 10^3/ul (0.8-2.9); LYMPHOCYTES % 12.9 % (15.0-51.0); MEAN CORPUSCULAR HEMOGLOBIN 25.1 pg (29.0-33.0); MEAN CORPUSCULAR HGB CONC 36.3 g/dl (32.0-37.0); MEAN CORPUSCULAR VOLUME 69.2 fl (82.0-101.0); MONOCYTE # 1.3 10^3/ul (0.3-0.9); MONOCYTES % 8.5 % (0.0-11.0); NEUTROPHIL # 10.9 10^3/ul (1.6-7.5); NEUTROPHILS % 73.7 % (39.0-77.0); NUCLEATED RED BLOOD CELLS # 0.1 10^3/ul (0.0-0.0); NUCLEATED RED BLOOD CELLS% 0.5 /100WBC (0.0-0.0); PLATELET COUNT 299 10^3/UL (140-415); POSITIVE DIFF @See below; RED BLOOD COUNT 5.69 10^6/ul (4.70-6.10)
[2018-03-14] MEDS: SOD CHLORIDE 0.9% 1,000 ML IV (16:15)
[2018-03-14 16:28] LABS: ALANINE AMINOTRANSFERASE 305 IU/L (13-69); ALBUMIN 2.9 g/dl (3.3-4.9); ALBUMIN/GLOBULIN RATIO 0.54; ALKALINE PHOSPHATASE 487 IU/L (42-121); ANION GAP 15 (8-16); ASPARTATE AMINO TRANSFERASE 202 IU/L (15-46); BILIRUBIN,INDIRECT 1.2 mg/dl (0-1.1); BLOOD UREA NITROGEN 28 mg/dl (7-20); CALCIUM 9.5 mg/dl (8.4-10.2); CARBON DIOXIDE 28 mmol/L (21-31); CHLORIDE 106 mmol/L (97-110); CREATININE 0.93 mg/dl (0.61-1.24); GLUCOSE 131 mg/dl (70-220); LIPASE 261 U/L (23-300); POTASSIUM 5.4 mmol/L (3.5-5.1); SODIUM 144 mmol/L (135-144); TOTAL PROTEIN 8.2 g/dl (6.1-8.1)
[2018-03-14 16:38] LABS: INR 1.14; PROTIME 14.8 Sec (11.9-14.9); PT RATIO 1.2
[2018-03-14 16:39] LABS: PARTIAL THROMBOPLASTIN TIME 34.9 Sec (25.0-35.0)
[2018-03-14 16:41] LABS: TROPONIN-I < 0.010 ng/ml (0.000-0.120)
[2018-03-14 17:04] LABS: ADD UMIC NO; UR ASCORBIC ACID 40 mg/dL (NEGATIVE); UR BILIRUBIN (Dip) 1+ mg/dL (NEGATIVE); UR BLOOD (Dip) NEGATIVE (NEGATIVE); UR CLARITY CLEAR (CLEAR); UR COLOR AMBER (YELLOW); UR GLUCOSE (Dip) NEGATIVE (NEGATIVE); UR KETONES (Dip) NEGATIVE (NEGATIVE); UR LEUKOCYTE ESTERASE (Dip) NEGATIVE Leu/ul (NEGATIVE); UR NITRITE (Dip) NEGATIVE (NEGATIVE); UR SPECIFIC GRAVITY (Dip) 1.014 (1.003-1.030); UR TOTAL PROTEIN (Dip) NEGATIVE (NEGATIVE); UR UROBILINOGEN (Dip) 1+ mg/dL (NEGATIVE)
[2018-03-14 17:25] LABS: LACTIC ACID 3.7 mmol/L (0.5-2.0)
[2018-03-14] MEDS: LIDOCAINE 1% (MDV) 10 ML INJ INJ (17:44)
[2018-03-14] MEDS: CEFEPIME 2GM/50 ML (PMX) 50 ML IVPB (18:18)
[2018-03-14 18:24] LABS: AMMONIA 66 umol/l (9-30)
[2018-03-14] MEDS ORDERED: ONDANSETRON 4 MG INJ IV ×2 (18:30→19:30)
[2018-03-14] MEDS ORDERED: ACETAMINOPHEN 325 MG TAB PO (18:30)
[2018-03-14 18:34] LABS: LACTIC ACID 3.2 mmol/L (0.5-2.0)
[2018-03-14 18:48] LABS: FLD CLARITY HAZY
[2018-03-14 18:48] LABS: FLD TYPE ASCITES
[2018-03-14 18:49] LABS: FLD COLOR AMBER
[2018-03-14] MEDS: VANCOMYCIN 1 GM (PMX) 250 ML IVPB (19:08)
[2018-03-14 19:09] LABS: FLD MN% 64.7 %; FLD PMN% 35.3 %; FLD RBC 2000 /uL; FLD WBC 1305 /cmm
[2018-03-14] MEDS: LACTULOSE 30ML CUP PO (19:14)
[2018-03-14] MEDS ORDERED: ALBUTEROL/IPRATROPIUM (NEB) 3 ML AMP HHN (19:30)
[2018-03-14] MEDS ORDERED: morphine 2 MG INJ IV (19:30)
[2018-03-14] MEDS ORDERED: NACL 0.9% 3 ML SYG IV (19:30)
[2018-03-14] MEDS: SODIUM CHLORIDE 0.9% 1L BAG IV* (20:07)
[2018-03-14] MEDS: FUROSEMIDE 40 MG INJ IV (20:07)
[2018-03-14] MEDS: LATANOPROST 0.005% 2.5 ML OPH BOTH EYES (21:00)
[2018-03-14 21:48] LABS: LACTIC ACID 2.9 mmol/L (0.5-2.0)
[2018-03-15] MEDS: LACTULOSE 30ML CUP PO ×3 (06:10→18:30)
[2018-03-15] MEDS: FUROSEMIDE 40 MG INJ IV ×2 (06:10→18:31)
[2018-03-15 06:14] LABS: ADD MAN DIFF? NO
[2018-03-15 06:42] LABS: HEMOGLOBIN A1C 5.7 % (0-5.9)
[2018-03-15 06:47] LABS: ANION GAP 6 (8-16); BLOOD UREA NITROGEN 25 mg/dl (7-20); CALCIUM 9.2 mg/dl (8.4-10.2); CARBON DIOXIDE 30 mmol/L (21-31); CHLORIDE 109 mmol/L (97-110); CREATININE 0.85 mg/dl (0.61-1.24); GLUCOSE 90 mg/dl (70-220); MAGNESIUM 2.3 mg/dl (1.7-2.5); PHOSPHORUS 3.4 mg/dl (2.5-4.9); POTASSIUM 4.4 mmol/L (3.5-5.1); SODIUM 141 mmol/L (135-144)
[2018-03-15 07:03] LABS: AMMONIA 47 umol/l (9-30)
[2018-03-15 08:29] LABS: ABNORMAL IP MESSAGE 1; BASOPHIL # 0.1 10^3/ul (0.0-0.1); BASOPHILS % 0.5 % (0.0-2.0); EOSINOPHILS # 0.1 10^3/ul (0.0-0.5); EOSINOPHILS % 0.4 % (0.0-7.0); HEMOGLOBIN 13.6 g/dl (14.0-18.0); LYMPHOCYTES # 1.7 10^3/ul (0.8-2.9); LYMPHOCYTES % 12.4 % (15.0-51.0); MEAN CORPUSCULAR HEMOGLOBIN 24.8 pg (29.0-33.0); MEAN CORPUSCULAR HGB CONC 35.8 g/dl (32.0-37.0); MEAN CORPUSCULAR VOLUME 69.3 fl (82.0-101.0); MONOCYTES % 7.7 % (0.0-11.0); NEUTROPHIL # 10.2 10^3/ul (1.6-7.5); NEUTROPHILS % 75.6 % (39.0-77.0); NUCLEATED RED BLOOD CELLS% 0.3 /100WBC (0.0-0.0); POSITIVE DIFF @See below; RED CELL DISTRIBUTION WIDTH 23.8 % (11.5-14.5)
[2018-03-15 08:32] LABS: PLATELET COUNT 261 10^3/UL (140-415); RED BLOOD COUNT 5.43 10^6/ul (4.70-6.10)
[2018-03-15 08:32] LABS: WHITE BLOOD COUNT 12.9 10^3/ul (4.8-10.8)
[2018-03-15] MEDS: CEFTRIAXONE 1 GM/50 ML (PMX) 50 ML IVPB (09:32)
[2018-03-15] MEDS ORDERED: morphine LIQ (10 MG/5 ML) CUP PO (15:00)
[2018-03-15] MEDS: SPIRONOLACTONE 50 MG TAB PO (18:30)
[2018-03-15] MEDS: LATANOPROST 0.005% 2.5 ML OPH BOTH EYES (21:15)
[2018-03-16] MEDS: LACTULOSE 30ML CUP PO ×4 (00:08→17:58)
[2018-03-16 05:58] LABS: ADD MAN DIFF? NO
[2018-03-16 06:03] LABS: ABNORMAL IP MESSAGE 1; BASOPHIL # 0.1 10^3/ul (0.0-0.1); BASOPHILS % 0.6 % (0.0-2.0); EOSINOPHILS # 0.1 10^3/ul (0.0-0.5); EOSINOPHILS % 0.6 % (0.0-7.0); HEMATOCRIT 39.3 % (42.0-52.0); HEMOGLOBIN 14.3 g/dl (14.0-18.0); LYMPHOCYTES # 1.7 10^3/ul (0.8-2.9); LYMPHOCYTES % 15.7 % (15.0-51.0); MEAN CORPUSCULAR HEMOGLOBIN 24.9 pg (29.0-33.0); MEAN CORPUSCULAR HGB CONC 36.4 g/dl (32.0-37.0); MEAN CORPUSCULAR VOLUME 68.5 fl (82.0-101.0); MEAN PLATELET VOLUME 10.4 fl (7.4-10.4); MONOCYTE # 0.9 10^3/ul (0.3-0.9); MONOCYTES % 8.6 % (0.0-11.0); NEUTROPHIL # 7.7 10^3/ul (1.6-7.5); NEUTROPHILS % 72.5 % (39.0-77.0); NUCLEATED RED BLOOD CELLS% 0.3 /100WBC (0.0-0.0); PLATELET COUNT 288 10^3/UL (140-415); POSITIVE DIFF @See below; RED BLOOD COUNT 5.74 10^6/ul (4.70-6.10); RED CELL DISTRIBUTION WIDTH 24.4 % (11.5-14.5)
[2018-03-16 06:03] LABS: WHITE BLOOD COUNT 10.6 10^3/ul (4.8-10.8)
[2018-03-16] MEDS: SPIRONOLACTONE 50 MG TAB PO ×2 (06:09→17:59)
[2018-03-16] MEDS: FUROSEMIDE 40 MG INJ IV (06:11)
[2018-03-16 06:26] LABS: ANION GAP 5 (8-16); BLOOD UREA NITROGEN 23 mg/dl (7-20); CALCIUM 9.5 mg/dl (8.4-10.2); CARBON DIOXIDE 32 mmol/L (21-31); CHLORIDE 110 mmol/L (97-110); CREATININE 0.87 mg/dl (0.61-1.24); GLUCOSE 100 mg/dl (70-220); POTASSIUM 4.2 mmol/L (3.5-5.1); SODIUM 143 mmol/L (135-144)
[2018-03-16] MEDS: CEFTRIAXONE 1 GM/50 ML (PMX) 50 ML IVPB (08:32)
[2018-03-16] MEDS: LIDOCAINE 1% (MDV) 10 ML INJ (13:23)
[2018-03-16] MEDS: FUROSEMIDE 40 MG TAB PO (17:58)
[2018-03-16] MEDS: [UNRECOGNIZED DRUG - OTHER] PO (20:50)
[2018-03-16] MEDS: REGORAFENIB PO (20:50)
[2018-03-16] MEDS: LATANOPROST 0.005% 2.5 ML OPH BOTH EYES (20:52)
[2018-03-16] MEDS ORDERED: [UNRECOGNIZED DRUG - OTHER] PO (21:00)
[2018-03-16] MEDS ORDERED: REGORAFENIB 40 MG PO (21:00)
[2018-03-16] MEDS ORDERED: REGORAFENIB PO (21:00)
[2018-03-17] MEDS: LACTULOSE 30ML CUP PO ×4 (00:51→17:59)
[2018-03-17] MEDS: SPIRONOLACTONE 50 MG TAB PO ×2 (05:19→17:59)
[2018-03-17] MEDS: FUROSEMIDE 40 MG TAB PO ×2 (05:20→17:59)
[2018-03-17 06:24] LABS: ADD MAN DIFF? NO
[2018-03-17 06:32] LABS: WHITE BLOOD COUNT 9.9 10^3/ul (4.8-10.8)
[2018-03-17 06:32] LABS: ABNORMAL IP MESSAGE 1; BASOPHIL # 0.1 10^3/ul (0.0-0.1); BASOPHILS % 0.6 % (0.0-2.0); EOSINOPHILS # 0.1 10^3/ul (0.0-0.5); EOSINOPHILS % 0.7 % (0.0-7.0); HEMATOCRIT 43.3 % (42.0-52.0); HEMOGLOBIN 15.1 g/dl (14.0-18.0); LYMPHOCYTES # 1.7 10^3/ul (0.8-2.9); LYMPHOCYTES % 17.3 % (15.0-51.0); MEAN CORPUSCULAR HEMOGLOBIN 24.7 pg (29.0-33.0); MEAN CORPUSCULAR HGB CONC 34.9 g/dl (32.0-37.0); MEAN CORPUSCULAR VOLUME 70.9 fl (82.0-101.0); MONOCYTE # 0.9 10^3/ul (0.3-0.9); MONOCYTES % 8.9 % (0.0-11.0); NEUTROPHILS % 70.9 % (39.0-77.0); NUCLEATED RED BLOOD CELLS% 0.3 /100WBC (0.0-0.0); PLATELET COUNT 369 10^3/UL (140-415); POSITIVE DIFF @See below; RED BLOOD COUNT 6.11 10^6/ul (4.70-6.10); RED CELL DISTRIBUTION WIDTH 27.7 % (11.5-14.5)
[2018-03-17] MEDS: REGORAFENIB PO ×2 (09:04→21:09)
[2018-03-17] MEDS: [UNRECOGNIZED DRUG - OTHER] PO ×2 (09:04→21:09)
[2018-03-17] MEDS: CEFTRIAXONE 1 GM/50 ML (PMX) 50 ML IVPB (09:04)
[2018-03-17 10:49] LABS: ANION GAP 12 (8-16); BLOOD UREA NITROGEN 21 mg/dl (7-20); CALCIUM 9.6 mg/dl (8.4-10.2); CARBON DIOXIDE 30 mmol/L (21-31); CHLORIDE 105 mmol/L (97-110); CREATININE 1.04 mg/dl (0.61-1.24); GLUCOSE 94 mg/dl (70-220); MAGNESIUM 1.9 mg/dl (1.7-2.5); PHOSPHORUS 3.9 mg/dl (2.5-4.9); POTASSIUM 4.3 mmol/L (3.5-5.1); SODIUM 143 mmol/L (135-144)
[2018-03-17] MEDS: LATANOPROST 0.005% 2.5 ML OPH BOTH EYES (21:03)
[2018-03-18] MEDS: LACTULOSE 30ML CUP PO ×4 (00:33→18:02)
[2018-03-18] MEDS: SPIRONOLACTONE 50 MG TAB PO ×2 (05:52→18:03)
[2018-03-18] MEDS: FUROSEMIDE 40 MG TAB PO ×2 (05:52→18:03)
[2018-03-18] MEDS: CEFTRIAXONE 1 GM/50 ML (PMX) 50 ML IVPB (09:20)
[2018-03-18] MEDS: [UNRECOGNIZED DRUG - OTHER] PO (09:22)
[2018-03-18] MEDS: REGORAFENIB PO (09:22)
[2018-04-03] MEDS ORDERED: REGORAFENIB PO (09:00)
[2018-04-03] MEDS ORDERED: [UNRECOGNIZED DRUG - OTHER] PO (09:00)
[2018-04-04] MEDS ORDERED: [UNRECOGNIZED DRUG - OTHER] PO (09:00)
[2018-04-04] MEDS ORDERED: REGORAFENIB PO (09:00)
== END 2018-03-18 20:05 | disposition home or self-care (01) | DRG 435 ==
LOC: E/R 15:15 → PP2 18:08 → MS2 22:15
PROC: 0W9G3ZZ Drainage of Peritoneal Cavity, Percutaneous Approach (ICD-10-PCS; principal; 2018-03-14)
PROC: 0W9G3ZZ Drainage of Peritoneal Cavity, Percutaneous Approach (ICD-10-PCS; 2018-03-16)
DX: C22.0 Liver cell carcinoma (principal); K72.00 Acute and subacute hepatic failure without coma; R18.0 Malignant ascites; K74.60 Unspecified cirrhosis of liver; E87.5 Hyperkalemia; D72.829 Elevated white blood cell count, unspecified
CPT/HCPCS: 36415; 70450; 71045; 74176; 80048; 80053; 81003; 82140; 83036; 83605; 83690; 83735; 84100; 84484; 85025; 85610; 85730; 86850; 86900; 86901; 87040; 87070; 87081; 87086; 89051; 93005; 96374; 96375; 97162; 99285-25

== ENCOUNTER 2018-03-24 14:29 | Outpatient (CLI) | payer OTHER | END 2018-03-24 16:44 | disposition home or self-care (01) | LOC: DCC 14:29 | DX: C22.0 Liver cell carcinoma (principal); R18.8 Other ascites; B18.2 Chronic viral hepatitis C; K72.90 Hepatic failure, unspecified without coma; F41.9 Anxiety disorder, unspecified; Z80.8 Family history of malignant neoplasm of other organs or systems; Z83.3 Family history of diabetes mellitus | CPT/HCPCS: G0463 ==

== ENCOUNTER 2018-04-02 12:27 | Observation (INO) | payer OTHER ==
[2018-04-02 12:56] LABS: ADD MAN DIFF? NO
[2018-04-02] MEDS: SOD CHLORIDE 0.9% 500 ML IV (12:57)
[2018-04-02 13:01] LABS: ABNORMAL IP MESSAGE 1; BASOPHILS % 0.3 % (0.0-2.0); EOSINOPHILS % 0.4 % (0.0-7.0); HEMATOCRIT 38.9 % (42.0-52.0); HEMOGLOBIN 14.4 g/dl (14.0-18.0); LYMPHOCYTES # 1.2 10^3/ul (0.8-2.9); LYMPHOCYTES % 13.4 % (15.0-51.0); MEAN CORPUSCULAR HEMOGLOBIN 26.2 pg (29.0-33.0); MEAN CORPUSCULAR VOLUME 70.7 fl (82.0-101.0); MEAN PLATELET VOLUME 9.6 fl (7.4-10.4); MONOCYTE # 1.1 10^3/ul (0.3-0.9); MONOCYTES % 12.2 % (0.0-11.0); NEUTROPHIL # 6.7 10^3/ul (1.6-7.5); NEUTROPHILS % 72.6 % (39.0-77.0); PLATELET COUNT 207 10^3/UL (140-415); POSITIVE DIFF @See below; RED CELL DISTRIBUTION WIDTH 23.5 % (11.5-14.5)
[2018-04-02 13:01] LABS: WHITE BLOOD COUNT 9.2 10^3/ul (4.8-10.8)
[2018-04-02 13:19] LABS: ALANINE AMINOTRANSFERASE 190 IU/L (13-69); ALBUMIN 3.1 g/dl (3.3-4.9); ALBUMIN/GLOBULIN RATIO 0.62; ALKALINE PHOSPHATASE 405 IU/L (42-121); ANION GAP 18 (8-16); ASPARTATE AMINO TRANSFERASE 168 IU/L (15-46); BILIRUBIN,INDIRECT 1.4 mg/dl (0-1.1); BILIRUBIN,TOTAL 3.7 mg/dl (0.2-1.3); BLOOD UREA NITROGEN 35 mg/dl (7-20); CALCIUM 9.3 mg/dl (8.4-10.2); CARBON DIOXIDE 25 mmol/L (21-31); CHLORIDE 97 mmol/L (97-110); CREATININE 1.64 mg/dl (0.61-1.24); GLUCOSE 161 mg/dl (70-220); LIPASE 85 U/L (23-300); POTASSIUM 4.5 mmol/L (3.5-5.1); SODIUM 135 mmol/L (135-144); TOTAL PROTEIN 8.1 g/dl (6.1-8.1)
[2018-04-02 13:30] LABS: TROPONIN-I < 0.012 ng/ml (0.000-0.120)
[2018-04-02 13:30] LABS: AMMONIA 16 umol/l (9-30)
[2018-04-02] MEDS: CEFTRIAXONE 1 GM/50 ML (PMX) 50 ML IVPB (13:30)
[2018-04-02 13:34] LABS: INR 1.16; PT RATIO 1.2
[2018-04-02 13:35] LABS: PARTIAL THROMBOPLASTIN TIME 33.4 Sec (25.0-35.0)
[2018-04-02] MEDS ORDERED: NACL 0.9% 3 ML SYG IV (15:00)
[2018-04-02 15:34] LABS: ADD UMIC NO; UR ASCORBIC ACID NEGATIVE (NEGATIVE); UR BILIRUBIN (Dip) NEGATIVE (NEGATIVE); UR BLOOD (Dip) NEGATIVE (NEGATIVE); UR CLARITY CLEAR (CLEAR); UR COLOR AMBER (YELLOW); UR GLUCOSE (Dip) NEGATIVE (NEGATIVE); UR KETONES (Dip) NEGATIVE (NEGATIVE); UR LEUKOCYTE ESTERASE (Dip) NEGATIVE Leu/ul (NEGATIVE); UR NITRITE (Dip) NEGATIVE (NEGATIVE); UR SPECIFIC GRAVITY (Dip) 1.009 (1.003-1.030); UR TOTAL PROTEIN (Dip) NEGATIVE (NEGATIVE); UR UROBILINOGEN (Dip) NEGATIVE (NEGATIVE)
[2018-04-03 06:43] LABS: ANION GAP 13 (8-16); BLOOD UREA NITROGEN 27 mg/dl (7-20); CALCIUM 8.8 mg/dl (8.4-10.2); CARBON DIOXIDE 24 mmol/L (21-31); CHLORIDE 105 mmol/L (97-110); CREATININE 1.16 mg/dl (0.61-1.24); GLUCOSE 92 mg/dl (70-220); POTASSIUM 3.9 mmol/L (3.5-5.1); SODIUM 138 mmol/L (135-144)
[2018-04-03] MEDS: ENOXAPARIN 30 MG/0.3 ML SYG SC (09:17)
[2018-04-03] MEDS: LACTULOSE 30ML CUP PO (20:45)
[2018-04-04 07:29] LABS: ADD MAN DIFF? NO
[2018-04-04 07:47] LABS: AMMONIA 49 umol/l (9-30)
[2018-04-04 08:03] LABS: ALANINE AMINOTRANSFERASE 165 IU/L (13-69); ALBUMIN 2.4 g/dl (3.3-4.9); ALBUMIN/GLOBULIN RATIO 0.51; ALKALINE PHOSPHATASE 398 IU/L (42-121); ANION GAP 11 (8-16); ASPARTATE AMINO TRANSFERASE 182 IU/L (15-46); BILIRUBIN,INDIRECT 1.4 mg/dl (0-1.1); BILIRUBIN,TOTAL 3.4 mg/dl (0.2-1.3); BLOOD UREA NITROGEN 24 mg/dl (7-20); CALCIUM 8.7 mg/dl (8.4-10.2); CARBON DIOXIDE 24 mmol/L (21-31); CHLORIDE 105 mmol/L (97-110); CREATININE 0.83 mg/dl (0.61-1.24); GLUCOSE 78 mg/dl (70-220); POTASSIUM 4.4 mmol/L (3.5-5.1); SODIUM 136 mmol/L (135-144); TOTAL PROTEIN 7.1 g/dl (6.1-8.1)
[2018-04-04 08:38] LABS: ABNORMAL IP MESSAGE 1; BASOPHILS % 0.2 % (0.0-2.0); EOSINOPHILS # 0.1 10^3/ul (0.0-0.5); EOSINOPHILS % 0.6 % (0.0-7.0); HEMATOCRIT 36.1 % (42.0-52.0); HEMOGLOBIN 13.7 g/dl (14.0-18.0); LYMPHOCYTES # 1.7 10^3/ul (0.8-2.9); LYMPHOCYTES % 18.9 % (15.0-51.0); MEAN CORPUSCULAR HEMOGLOBIN 26.6 pg (29.0-33.0); MEAN CORPUSCULAR VOLUME 70.1 fl (82.0-101.0); MEAN PLATELET VOLUME 9.7 fl (7.4-10.4); MONOCYTES % 11.2 % (0.0-11.0); NEUTROPHIL # 6.1 10^3/ul (1.6-7.5); NEUTROPHILS % 68.4 % (39.0-77.0); PLATELET COUNT 209 10^3/UL (140-415); POSITIVE DIFF @See below; RED BLOOD COUNT 5.15 10^6/ul (4.70-6.10); RED CELL DISTRIBUTION WIDTH 23.3 % (11.5-14.5)
[2018-04-04 08:38] LABS: WHITE BLOOD COUNT 8.9 10^3/ul (4.8-10.8)
[2018-04-04] MEDS: LACTULOSE 30ML CUP PO (08:55)
[2018-04-04] MEDS: ENOXAPARIN 30 MG/0.3 ML SYG SC (08:56)
== END 2018-04-04 17:05 | disposition home or self-care (01) ==
LOC: PP2 15:44 → E/R 12:27 → PP2 13:48
DX: I95.9 Hypotension, unspecified (principal); E86.0 Dehydration; K52.1 Toxic gastroenteritis and colitis; C22.0 Liver cell carcinoma; K74.60 Unspecified cirrhosis of liver; B19.20 Unspecified viral hepatitis C without hepatic coma; K72.90 Hepatic failure, unspecified without coma; J45.909 Unspecified asthma, uncomplicated; J44.9 Chronic obstructive pulmonary disease, unspecified; I10 Essential (primary) hypertension; Z88.8 Allergy status to other drugs, medicaments and biological substances
CPT/HCPCS: 71045; 76705; 80048; 80053; 81003; 82140; 83690; 84484; 85025; 85610; 85730; 87040; 87081; 87086; 93005; 99291-25; G0378

== ENCOUNTER 2018-04-26 14:18 | Emergency (ER) | payer OTHER ==
[2018-04-26] MEDS: HYDROCODONE/APAP (10/325) TAB PO (16:09)
[2018-04-26] MEDS: ONDANSETRON (ODT) 4 MG TAB ODT (16:09)
== END 2018-04-26 18:10 | disposition home or self-care (01) ==
LOC: E/R 14:18
DX: S80.11XA Contusion of right lower leg, initial encounter (principal); F17.210 Nicotine dependence, cigarettes, uncomplicated; W18.30XA Fall on same level, unspecified, initial encounter; Y92.9 Unspecified place or not applicable; Z85.05 Personal history of malignant neoplasm of liver
CPT/HCPCS: 73700; 99284-25

== ENCOUNTER → 2018-05-01 | Outpatient (CLI) | payer OTHER ==
[2018-05-01] MEDS: SOD CHLORIDE 0.9% 100 ML (11:43)
[2018-05-01] MEDS: IODIXANOL LOCM 100 ML BTL (11:44)
== END | disposition home or self-care (01) ==
LOC: C/S 10:14
DX: C22.0 Liver cell carcinoma (principal)
CPT/HCPCS: 74177